=== PATIENT | male | born 1960 | race Caucasian/White ===

== ENCOUNTER 2018-08-24 23:10 | Inpatient (IN) | payer BC ==
[~2018-08-24] VITALS: Ht 185.4 cm; Wt 154.9 kg
[2018-08-25] VITALS (11 sets, daily range): BP systolic 130–188; BP diastolic 60–86
[2018-08-25 00:47] LABS: BILIRUBIN,URINE NEGATIVE (NEG); CLARITY,URINE CLEAR; COLOR,URINE YELLOW; NITRITE,URINE NEGATIVE (NEG); PH,URINE 6.5; PROTEIN,URINE >=300 mg/dL (NEG-TRACE)
[2018-08-25 00:52] LABS: SQUAMOUS EPITHELIAL CELL,UR FEW /LPF
[2018-08-25 00:53] LABS: AMORPHOUS SEDIMENT,UR PRESENT /HPF; BACTERIA,URINE 0 /HPF (0-FEW); RBC,URINE 20-40 /HPF (0-2); WBC,URINE 0 /HPF (0-4)
[2018-08-25 01:21] LABS: BASO # 0.1 x10^3/uL (0.0-0.2); BASO % 1 % (0-3); EOS # 0.1 x10^3/uL (0.0-0.7); EOS % 1 % (0-3); HEMOGLOBIN 14.2 g/dL (13.0-17.5); LYMPH # 1.1 x10^3/uL (1.0-4.8); LYMPH % 12 % (24-48); MEAN CORPUSCULAR HEMOGLOBIN 31 pg (25-35); MEAN CORPUSCULAR HGB CONC 35 g/dL (31-37); MEAN CORPUSCULAR VOLUME 90 fL (79-100); MONO % 11 % (0-9); NEUT # 7.2 x10^3uL (1.8-7.7); NEUT % 76 % (31-73); PLATELET COUNT 210 x10^3/uL (140-400); RED BLOOD COUNT 4.55 x10^6/uL (4.30-5.70); WHITE BLOOD COUNT 9.6 x10^3/uL (4.0-11.0)
[2018-08-25 01:24] LABS: CALCIUM 9.4 mg/dL (8.5-10.1); CREATININE 1.2 mg/dL (0.7-1.3); POTASSIUM 4.2 mmol/L (3.5-5.1)
--- NOTE | 2018-08-25 02:17 | PHYS DOC ---
Past Medical History Past Medical History: Diabetes-Type II, Hypertension Past Surgical History: Cholecystectomy Alcohol Use: Occasionally Drug Use: None Adult General Chief Complaint Chief Complaint: URINARY RETENTION HPI HPI Patient is a 58 year old with history of hypertension type 2 diabetes who presents with urinary frequency urgency and dysuria for the past 4 days. Patient also reports hematuria. States that he was seen by his PCP earlier today for the same and then developed back pain following a visit. No nausea or vomiting. No fever chills or sweats. History of previous urinary tract infection. Denies hi story of kidney stones. [] Review of Systems Review of Systems Review of symptoms as per history of present illness. All other review symptoms are negative. All other systems were reviewed and found to be within normal limits, except as documented in this note. Current Medications Current Medications Current Medications Medications (Trade) Dose Ordered Sig/Jacky Start Time Stop Time Status Last Admin Dose Admin Phenazopyridine HCl (Pyridium) 200 mg 1X ONCE 08/25/18 02:30 08/25/18 02:31 DC 08/25/18 02:30 200 MG Allergies Allergies Allergies Coded Allergies Type Severity Reaction Last Updated Verified simvastatin Allergy Unknown 08/24/18 Yes Physical Exam Physical Exam Constitutional: Well developed, well nourished, no acute distress, non-toxic appearance. [] HENT: Normocephalic, atraumatic, bilateral external ears normal, oropharynx moist, no oral exudates, nose normal. [] Eyes: PERRLA, EOMI, conjunctiva normal, no discharge. [] Neck: Normal range of motion, no tenderness, supple, no stridor. [] Cardiovascular:Heart rate regular rhythm, no murmur [] Lungs & Thorax: Bilateral breath sounds clear to auscultation [] Abdomen: Bowel sounds normal, soft, no tenderness. [] Skin: Warm, dry, no erythema, no rash. [] Back: No tenderness, no CVA tenderness. [] Extremities: No tenderness, no cyanosis, no clubbing, ROM intact, no edema. [] Neurologic: Alert and oriented X 3, normal motor function, normal sensory function, no focal deficits noted. [] Psychologic: Affect normal, judgement normal, mood normal. [] Current Patient Data Vital Signs Vital Signs Date Time Temp Pulse Resp B/P (MAP) Pulse Ox O2 Delivery O2 Flow Rate FiO2 08/24/18 23:51 98.1 84 16 187/98 (127) 94 Room Air 98.1 Lab Values Laboratory Tests Test 08/25/18 00:15 08/25/18 01:05 Urine Collection Type Unknown Urine Color Yellow Urine Clarity Clear Urine pH 6.5 Urine Specific [place] 1.025 Urine Protein >=300 mg/dL (NEG-TRACE) Urine Glucose (UA) Negative mg/dL (NEG) Urine Ketones (Stick) Negative mg/dL (NEG) Urine Blood Large (NEG) Urine Nitrite Negative (NEG) Urine Bilirubin Negative (NEG) Urine Urobilinogen Dipstick 1.0 mg/dL (0.2 mg/dL) Urine Leukocyte Esterase Negative (NEG) Urine RBC 20-40 /HPF (0-2) Urine WBC 0 /HPF (0-4) Urine Squamous Epithelial Cells Few /LPF Urine Amorphous Sediment Present /HPF Urine Bacteria 0 /HPF (0-FEW) Urine Mucus Mod /LPF White Blood Count 9.6 x10^3/uL (4.0-11.0) Red Blood Count 4.55 x10^6/uL (4.30-5.70) Hemoglobin 14.2 g/dL (13.0-17.5) Hematocrit 41.0 % (39.0-53.0) Mean Corpuscular Volume 90 fL (79-100) Mean Corpuscular Hemoglobin 31 pg (25-35) Mean Corpuscular Hemoglobin Concent 35 g/dL (31-37) Red Cell Distribution Width 13.0 % (11.5-14.5) Platelet Count 210 x10^3/uL (140-400) Neutrophils (%) (Auto) 76 % (31-73) H Lymphocytes (%) (Auto) 12 % (24-48) L Monocytes (%) (Auto) 11 % (0-9) H Eosinophils (%) (Auto) 1 % (0-3) Basophils (%) (Auto) 1 % (0-3) Neutrophils # (Auto) 7.2 x10^3uL (1.8-7.7) Lymphocytes # (Auto) 1.1 x10^3/uL (1.0-4.8) Monocytes # (Auto) 1.0 x10^3/uL (0.0-1.1) Eosinophils # (Auto) 0.1 x10^3/uL (0.0-0.7) Basophils # (Auto) 0.1 x10^3/uL (0.0-0.2) Sodium Level 138 mmol/L (136-145) Potassium Level 4.2 mmol/L (3.5-5.1) Chloride Level 101 mmol/L (98-107) Carbon Dioxide Level 25 mmol/L (21-32) Anion Gap 12 (6-14) Blood Urea Nitrogen 26 mg/dL (8-26) Creatinine 1.2 mg/dL (0.7-1.3) Estimated GFR (Cockcroft-Gault) 62.0 Glucose Level 141 mg/dL (70-99) H Calcium Level 9.4 mg/dL (8.5-10.1) Laboratory Tests 08/25/18 01:05 Laboratory Tests 08/25/18 01:05 EKG EKG [] Radiology/Procedures Radiology/Procedures [CT abdomen pelvis: 9 Millimeter left UVJ stone with hydroureter and nephrosis.] Course & Med Decision Making Course & Med Decision Making Pertinent Labs and Imaging studies reviewed. (See chart for details) Obstructing ureteral stone in diabetic male. No infection. ] Dragon Disclaimer Dragon Disclaimer This electronic medical record was generated, in whole or in part, using a voice recognition dictation system. Departure Departure Impression: Primary Impression: Ureteral calculus, left Additional Impression: Diabetes Disposition: ADMITTED INPATIENT Condition: GOOD Referrals: NO PCP (PCP) Problem Qualifiers ALICE DAVIS DO Aug 25, 2018 02:17
[2018-08-25] MEDS ORDERED: PHENAZOPYRIDINE 200 MG TABLET. PO ONE (02:30)
--- NOTE | 2018-08-25 03:50 | RAD ---
INDICATION: Flank pain and hematuria COMPARISON: None. TECHNIQUE: Axial CT images obtained through the abdomen and pelvis without contrast. Limited assessment of solid organ structures and vasculature secondary to lack of intravenous contrast.. One or more of the following individualized dose reduction techniques were utilized for this examination: 1. Automated exposure control; 2. Adjustment of the mA and/or kV according to patient size; 3. Use of iterative reconstruction technique. FINDINGS: Small hiatal hernia. Moderate calcific atherosclerosis. Fat-containing right greater than left inguinal hernia. Liver is mildly low attenuation. Nonspecific but can be seen with fatty infiltration. No peripancreatic fluid collection. Spleen unremarkable. Left-sided hydronephrosis with perinephric edema and hydroureter. Left ureterovesicular junction stone measuring up to 9 mm. The urinary bladder is decompressed with thickened wall and adjacent edema. Catheter within. Cystic lesion at the lower pole the left kidney measuring up to 63 mm. No right-sided hydronephrosis. Appendix does not appear grossly inflamed. Prostate calcifications. Degenerative changes the spine with multilevel central canal and neural foraminal stenosis. Degenerative changes of the hips. IMPRESSION: 1. Left-sided hydronephrosis with perinephric edema and perinephric fluid as well as hydroureter and left distal ureter stone. 2. The urinary bladder is decompressed but appears thick-walled with adjacent edema. Would correlate with symptoms in the region to ensure that there is not a additional pathologic cause such as cystitis or a bladder wall lesion. 3. Multilevel degenerative changes throughout the spine with central canal and neural foraminal stenosis. 4. Calcific atherosclerosis. 5. Cystic lesion left kidney. Cannot evaluate for complex component on noncontrast exam. Electronically signed by: Raghav Jacobs MD (08/25/2018 3:47 AM) [facility]
[2018-08-25] MEDS ORDERED: ONDANSETRON PF 4 MG/2 ML VIAL. IV PRN ×2 (04:15→11:15)
[2018-08-25] MEDS ORDERED: MORPHINE SULFATE 4 MG/ML VIAL. IV ONE (04:30)
[2018-08-25] MEDS ORDERED: KETOROLAC 30 MG/ML VIAL. IV ONE (04:30)
[2018-08-25] MEDS ORDERED: ONDANSETRON PF 4 MG/2 ML VIAL. IV ONE (04:30)
--- NOTE | 2018-08-25 05:30 | NUR ---
A 58 year old male admitted from ER to room 430 per wheelchair for diagnosis of urinary retention, hematuria,flank pain and a 9mm left kidney stone. Patient is alert and oriented X4. Patient states he is allergic to simvastatin and the flu vaccine. Patient denies pain at this time. Consult with Dr. Garber. Will continue to monitor.
[2018-08-25] MEDS: MORPHINE SULFATE 2 MG/ML VIAL. IV PRN ×2 (08:39→11:29)
[2018-08-25] MEDS: IV NORMAL SALINE 1000ML BAG 1,000 ML IV SCH ×3 (08:43→17:35)
--- NOTE | 2018-08-25 09:28 | PDOC2 ---
YANDYRUDY Bonny DERAS 08/25/18 0928: UROLOGY CONSULT Date of Consult Date of Consult DATE: 08/25/18 TIME: 09:20 Identification/Chief Complaint Chief Complaint 9 mm kidney stone Source Source: Caregiver, Chart review, Patient History of Present Illness Reason for Visit: This pleasant 58 year old male presented yesterday through the ER with extreme pressure/pain in his bilateral lower back. A CT scan was done and it was discovered that he had a 9 mm kidney stone in his left side along with hydronephrosis and hydroureter. Therefore Urology was consulted. This is the first time he has had a kidney stone to knowledge, but does have controlled type 2 diabetes and HTN. Presently his pain is 0/10 and he is not nauseas or vomiting either. He did have some mild dysuria off and on over the past week, along with hematuria he saw just once on Thursday. He is open to having a surgery today for his kidney stones if necessary. Social History Quit (Quit ) Current Problem List Problems: (1) Ureteral stone Current Medications Current Medications Current Medications Ketorolac Tromethamine (Toradol 30mg Vial) 30 mg 1X ONCE IV Last administered on 08/25/18at 04:30; Start 08/25/18 at 04:30; Stop 08/25/18 at 04:31; Status DC Morphine Sulfate (Morphine Sulfate) 2 mg PRN Q2HR PRN IV PAIN Last administered on 08/25/18at 08:39; Start 08/25/18 at 04:15; Stop 08/26/18 at 04:14 Morphine Sulfate (Morphine Sulfate) 4 mg 1X ONCE IV Last administered on 08/25/18at 04:30; Start 08/25/18 at 04:30; Stop 08/25/18 at 04:31; Status DC Ondansetron HCl (Zofran) 4 mg 1X ONCE IV Last administered on 08/25/18at 04:30; Start 08/25/18 at 04:30; Stop 08/25/18 at 04:31; Status DC Ondansetron HCl (Zofran) 4 mg PRN Q8HRS PRN IV NAUSEA/VOMITING; Start 08/25/18 at 04:15; Stop 08/26/18 at 04:14 Phenazopyridine HCl (Pyridium) 200 mg 1X ONCE PO Last administered on 08/25/18at 02:30; Start 08/25/18 at 02:30; Stop 08/25/18 at 02:31; Status DC Sodium Chloride 1,000 ml @ 150 mls/hr Q6H40M IV Last administered on 08/25/18at 08:43; Start 08/25/18 at 04:15; Stop 08/26/18 at 04:14 Allergies Allergies: Coded Allergies: Influenza Virus Vaccines (Verified Allergy, Intermediate, was in hospital for 2 weeks, 08/25/18) simvastatin (Verified Allergy, Intermediate, 08/25/18) ROS Review Of Systems: CONSTITUTIONAL: No fever or chills EYES: No recent changes SKIN: No rash or itching CARDIOVASCULAR: No chest pain, syncope, palpitations, or edema RESPIRATORY: No SOB or cough GASTROINTESTINAL: + abdominal pain right lower side, no N/V NEUROLOGICAL: No headaches or weakness ENDOCRINE: No cold or heat intolerance GENITOURINARY: + Dysuria/hematuria intermittently. MUSCULOSKELETAL: No back pain or joint pain LYMPHATICS: No enlarged lymph nodes PSYCHIATRIC: No anxiety or depression Physical Exam Physical Exam: General: Pleasant, no acute distress, well groomed Eyes: conjunctiva anicteric, eyes full range of motion ENT: moist oral mucosa, normal dentition Neck: Trachea midline, no masses Respiratory: unlabored breathing, not using accessory muscles, Back: No CVA pain on testing/physical exam. Abdomen: soft, obese, tender RLQ, non tender all other areas. Skin: no rashes or skin lesions on visualized skin Psych: normal mood, affect. Alert and oriented x 3. Vitals VITALS Vital Signs Date Time Temp Pulse Resp B/P (MAP) Pulse Ox O2 Delivery O2 Flow Rate FiO2 08/25/18 08:39 91 Room Air 08/25/18 07:00 98.0 67 18 145/63 (90) 98.0 Labs Labs Laboratory Tests Test 08/25/18 00:15 08/25/18 01:05 08/25/18 07:23 Urine Collection Type Unknown Urine Color Yellow Urine Clarity Clear Urine pH 6.5 Urine Specific [place] 1.025 Urine Protein >=300 mg/dL (NEG-TRACE) Urine Glucose (UA) Negative mg/dL (NEG) Urine Ketones (Stick) Negative mg/dL (NEG) Urine Blood Large (NEG) Urine Nitrite Negative (NEG) Urine Bilirubin Negative (NEG) Urine Urobilinogen Dipstick 1.0 mg/dL (0.2 mg/dL) Urine Leukocyte Esterase Negative (NEG) Urine RBC 20-40 /HPF (0-2) Urine WBC 0 /HPF (0-4) Urine Squamous Epithelial Cells Few /LPF Urine Amorphous Sediment Present /HPF Urine Bacteria 0 /HPF (0-FEW) Urine Mucus Mod /LPF White Blood Count 9.6 x10^3/uL (4.0-11.0) Red Blood Count 4.55 x10^6/uL (4.30-5.70) Hemoglobin 14.2 g/dL (13.0-17.5) Hematocrit 41.0 % (39.0-53.0) Mean Corpuscular Volume 90 fL (79-100) Mean Corpuscular Hemoglobin 31 pg (25-35) Mean Corpuscular Hemoglobin Concent 35 g/dL (31-37) Red Cell Distribution Width 13.0 % (11.5-14.5) Platelet Count 210 x10^3/uL (140-400) Neutrophils (%) (Auto) 76 % (31-73) Lymphocytes (%) (Auto) 12 % (24-48) Monocytes (%) (Auto) 11 % (0-9) Eosinophils (%) (Auto) 1 % (0-3) Basophils (%) (Auto) 1 % (0-3) Neutrophils # (Auto) 7.2 x10^3uL (1.8-7.7) Lymphocytes # (Auto) 1.1 x10^3/uL (1.0-4.8) Monocytes # (Auto) 1.0 x10^3/uL (0.0-1.1) Eosinophils # (Auto) 0.1 x10^3/uL (0.0-0.7) Basophils # (Auto) 0.1 x10^3/uL (0.0-0.2) Sodium Level 138 mmol/L (136-145) Potassium Level 4.2 mmol/L (3.5-5.1) Chloride Level 101 mmol/L (98-107) Carbon Dioxide Level 25 mmol/L (21-32) Anion Gap 12 (6-14) Blood Urea Nitrogen 26 mg/dL (8-26) Creatinine 1.2 mg/dL (0.7-1.3) Estimated GFR (Cockcroft-Gault) 62.0 Glucose Level 141 mg/dL (70-99) Calcium Level 9.4 mg/dL (8.5-10.1) Glucose (Fingerstick) 135 mg/dL (70-99) Laboratory Tests Test 08/25/18 00:15 08/25/18 01:05 08/25/18 07:23 Urine Collection Type Unknown Urine Color Yellow Urine Clarity Clear Urine pH 6.5 Urine Specific [place] 1.025 Urine Protein >=300 mg/dL (NEG-TRACE) Urine Glucose (UA) Negative mg/dL (NEG) Urine Ketones (Stick) Negative mg/dL (NEG) Urine Blood Large (NEG) Urine Nitrite Negative (NEG) Urine Bilirubin Negative (NEG) Urine Urobilinogen Dipstick 1.0 mg/dL (0.2 mg/dL) Urine Leukocyte Esterase Negative (NEG) Urine RBC 20-40 /HPF (0-2) Urine WBC 0 /HPF (0-4) Urine Squamous Epithelial Cells Few /LPF Urine Amorphous Sediment Present /HPF Urine Bacteria 0 /HPF (0-FEW) Urine Mucus Mod /LPF White Blood Count 9.6 x10^3/uL (4.0-11.0) Red Blood Count 4.55 x10^6/uL (4.30-5.70) Hemoglobin 14.2 g/dL (13.0-17.5) Hematocrit 41.0 % (39.0-53.0) Mean Corpuscular Volume 90 fL (79-100) Mean Corpuscular Hemoglobin 31 pg (25-35) Mean Corpuscular Hemoglobin Concent 35 g/dL (31-37) Red Cell Distribution Width 13.0 % (11.5-14.5) Platelet Count 210 x10^3/uL (140-400) Neutrophils (%) (Auto) 76 % (31-73) Lymphocytes (%) (Auto) 12 % (24-48) Monocytes (%) (Auto) 11 % (0-9) Eosinophils (%) (Auto) 1 % (0-3) Basophils (%) (Auto) 1 % (0-3) Neutrophils # (Auto) 7.2 x10^3uL (1.8-7.7) Lymphocytes # (Auto) 1.1 x10^3/uL (1.0-4.8) Monocytes # (Auto) 1.0 x10^3/uL (0.0-1.1) Eosinophils # (Auto) 0.1 x10^3/uL (0.0-0.7) Basophils # (Auto) 0.1 x10^3/uL (0.0-0.2) Sodium Level 138 mmol/L (136-145) Potassium Level 4.2 mmol/L (3.5-5.1) Chloride Level 101 mmol/L (98-107) Carbon Dioxide Level 25 mmol/L (21-32) Anion Gap 12 (6-14) Blood Urea Nitrogen 26 mg/dL (8-26) Creatinine 1.2 mg/dL (0.7-1.3) Estimated GFR (Cockcroft-Gault) 62.0 Glucose Level 141 mg/dL (70-99) Calcium Level 9.4 mg/dL (8.5-10.1) Glucose (Fingerstick) 135 mg/dL (70-99) Images Images IMPRESSION: CT ABD/PELVIS: 1. Left-sided hydronephrosis with perinephric edema and perinephric fluid as well as hydroureter and left distal ureter stone. 2. The urinary bladder is decompressed but appears thick-walled with adjacent edema. Would correlate with symptoms in the region to ensure that there is not a additional pathologic cause such as cystitis or a bladder wall lesion. 3. Multilevel degenerative changes throughout the spine with central canal and neural foraminal stenosis. 4. Calcific atherosclerosis. 5. Cystic lesion left kidney. Cannot evaluate for complex component on noncontrast exam. Assessment/Plan Assessment/Plan 9 MM ureteral stone causing moderate hydronephrosis and hydroureter: We will take patient to OR today at 4 pm for cysto with left URS and stent placement with Dr. Acosta of [facility]. Keep pt NPO until after procedure today Continue to strain urine Continue pain and nausea control. Will follow while in house. MOIRA ACOSTA MD 08/25/18 1254: UROLOGY CONSULT Assessment/Plan Assessment/Plan 9mm left uvj stone, pain control issues. Discussed urs with inherent risk of uti, gh, injury to urethra, bladder, ureter, kidney, stent problem, etc. npo, marked, consent after r/b disucssed LLP 6cm, will get jovani to document anechogenicity. RUDY KEBEDE APRN Aug 25, 2018 09:28 MOIRA ACOSTA MD Aug 25, 2018 12:54
--- NOTE | 2018-08-25 10:48 | NUR ---
SW following for discharge planning. Discussed with RN, pt is from home with , 9mm kidney stone. Awaiting plan to determine discharge needs. SW will continue to follow.
[2018-08-25] MEDS ORDERED: IV RINGERS,LACTATED 1000ML 1,000 ML IV SCH (11:00)
[2018-08-25] MEDS ORDERED: HYDROmorphone 2 MG/ML VIAL IV PRN (11:15)
[2018-08-25] MEDS ORDERED: fentaNYL PF VIAL 100 MCG/2 ML VIAL IV PRN (11:15)
[2018-08-25] MEDS ORDERED: PROCHLORPERAZINE 10 MG/2 ML VIAL. IV PRN (11:15)
[2018-08-25] MEDS ORDERED: MORPHINE SULFATE 2 MG/ML VIAL. IV PRN (11:15)
--- NOTE | 2018-08-25 11:17 | PDOC1 ---
History and Physical Date of Admission Date of Admission DATE: 08/25/18 TIME: 11:16 Identification/Chief Complaint Chief Complaint flank pain, hematuria, Source Source: Chart review, Patient History of Present Illness History of Present Illness Mr. Melendez, is a 58 year old admit with flank pain and with new urinary frequency and urgency w/dysuria. He has worsened over 3 days, and now also reports hematuria. pain is intermittently severe, OK with IV pain meds pain in flank just started < 24 hours ago No nausea or vomiting. No fever chills or sweats. History of previous urinary tract infection. no prior history of kidney stones. Past Medical History Cardiovascular: HTN GI: No pertinent hx Heme/Onc: No pertinent hx Renal/: No pertinent hx Endocrine: Diabetes Family History Family History: Alzheimer's Disease Social History Smoke: No ALCOHOL: rare Drugs: None Current Problem List Problem List Problems Medical Problems: (1) Diabetes Status: Acute (2) Diabetes Status: Acute (3) Ureteral calculus, left Status: Acute (4) Ureteral calculus, left Status: Acute Current Medications Current Medications Current Medications Phenazopyridine HCl (Pyridium) 200 mg 1X ONCE PO Last administered on 08/25/18at 02:30; Start 08/25/18 at 02:30; Stop 08/25/18 at 02:31; Status DC Morphine Sulfate (Morphine Sulfate) 4 mg 1X ONCE IV Last administered on 08/25/18at 04:30; Start 08/25/18 at 04:30; Stop 08/25/18 at 04:31; Status DC Ondansetron HCl (Zofran) 4 mg 1X ONCE IV Last administered on 08/25/18at 04:30; Start 08/25/18 at 04:30; Stop 08/25/18 at 04:31; Status DC Ketorolac Tromethamine (Toradol 30mg Vial) 30 mg 1X ONCE IV Last administered on 08/25/18at 04:30; Start 08/25/18 at 04:30; Stop 08/25/18 at 04:31; Status DC Ondansetron HCl (Zofran) 4 mg PRN Q8HRS PRN IV NAUSEA/VOMITING; Start 08/25/18 at 04:15; Stop 08/26/18 at 04:14 Morphine Sulfate (Morphine Sulfate) 2 mg PRN Q2HR PRN IV PAIN Last administered on 08/25/18at 08:39; Start 08/25/18 at 04:15; Stop 08/26/18 at 04:14 Sodium Chloride 1,000 ml @ 150 mls/hr Q6H40M IV Last administered on 08/25/18at 08:43; Start 08/25/18 at 04:15; Stop 08/26/18 at 04:14 Ciprofloxacin/ Dextrose 200 ml @ 200 mls/hr 1X ONCE IV ; Start 08/25/18 at 15:45; Stop 08/25/18 at 16:44 Ondansetron HCl (Zofran) 4 mg PRN Q6HRS PRN IV NAUSEA/VOMITING; Start 08/25/18 at 11:15; Stop 08/25/18 at 19:00 Fentanyl Citrate (Fentanyl 2ml Vial) 25 mcg PRN Q5MIN PRN IV MILD PAIN 1-3; Start 08/25/18 at 11:15; Stop 08/25/18 at 19:00 Fentanyl Citrate (Fentanyl 2ml Vial) 50 mcg PRN Q5MIN PRN IV MODERATE TO SEVERE PAIN; Start 08/25/18 at 11:15; Stop 08/25/18 at 19:00 Morphine Sulfate (Morphine Sulfate) 1 mg PRN Q10MIN PRN IV SEVERE PAIN 7-10; Start 08/25/18 at 11:15; Stop 08/25/18 at 19:00 Ringer's Solution 1,000 ml @ 30 mls/hr Q24H IV ; Start 08/25/18 at 11:00; Stop 08/25/18 at 19:00 Hydromorphone HCl (Dilaudid) 0.5 mg PRN Q10MIN PRN IV SEV PAIN, Second choice; Start 08/25/18 at 11:15; Stop 08/25/18 at 19:00 Prochlorperazine Edisylate (Compazine) 5 mg PACU PRN PRN IV NAUSEA, MRX1; Start 08/25/18 at 11:15; Stop 08/25/18 at 19:00 Allergies Allergies: Coded Allergies: Influenza Virus Vaccines (Verified Allergy, Intermediate, was in hospital for 2 weeks, 08/25/18) simvastatin (Verified Allergy, Intermediate, 08/25/18) ROS General: YES: Chills; No: Night Sweats, Fatigue, Malaise, Appetite, Other PSYCHOLOGICAL ROS: No: Anxiety, Behavioral Disorder, Concentration difficultie, Decreased libido, Depression, Disorientation, Hallucinations, Hostility, Irritablity, Memory difficulties, Mood Swings, Obsessive thoughts, Sleep disturbances, Other Eyes: No Blurry vision, No Decreased vision, No Double vision, No Dry eyes, No Excessive tearing, No Eye Pain, No Itchy Eyes, No Loss of vision, No Photophobia, No Scotomata, No Uses contacts, No Uses glasses, No Other HEENT: No: Heacaches, Visual Changes, Hearing change, Nasal congestion, Nasal discharge, Oral lesions, Sinus pain, Sore Throat, Epistaxis, Sneezing, Snoring, Tinnitus, Vertigo, Vocal changes, Other ENDOCRINE: No: Breast Changes, Galactorrhea, Hair Pattern Changes, Hot Flashes, Malaise/lethargy, Mood Swings, Palpitations, Polydipsia/polyuria, Skin Changes, Temperature Intolerance, Unexpected Weight Changes, Other Respiratory: No: Cough, Hemoptysis, Orthopnea, Pleuritic Pain, Shortness of breath, SOB with excertion, Sputum Changes, Stridor, Tachypnea, Wheezing, Other Gastrointestinal: No Nausea, No Vomiting, No Abdominal Pain, No Diarrhea, No Constipation, No Melena, No Hematochezia, No Other Genitourinary: YES Dysuria, YES Hematuria, YES Urgency, YES Pain, YES Flank Pain Musculoskeletal: No Gait Disturbance, No Joint Pain, No Joint Stiffness, No Joint Swelling, No Muscle Pain, No Muscular Weakness, No Pain In:, No Swelling In:, No Other Neurological: No Behavorial Changes, No Bowel/Bladder ControlChng, No Confusion, No Dizziness, No Gait Disturbance, No Headaches, No Impaired Coord/balance, No Memory Loss, No Numbness/Tingling, No Seizures, No Speech Problems, No Tremors, No Visual Changes, No Weakness, No Other Skin: No Dry Skin, No Eczema, No Hair Changes, No Lumps, No Mole Changes, No Mottling, No Nail Changes, No Pruritus, No Rash, No Skin Lesion Changes, No Other, No Acne Physical Exam General: Alert, Oriented X3, Cooperative, mild distress HEENT: Mucous membr. moist/pink Lungs: Clear to auscultation, Normal air movement Heart: S1S2 Abdomen: Normal bowel sounds, Soft (obese) Extremities: No cyanosis, Normal pulses Skin: No rashes, No significant lesion Neuro: Normal gait, Normal speech, Normal tone Psych/Mental Status: Mood NL Vitals Vitals Vital Signs Date Time Temp Pulse Resp B/P (MAP) Pulse Ox O2 Delivery O2 Flow Rate FiO2 08/25/18 09:15 91 Room Air 08/25/18 07:00 98.0 67 18 145/63 (90) 98.0 Labs Labs Laboratory Tests Test 08/25/18 00:15 08/25/18 01:05 08/25/18 07:23 Urine Collection Type Unknown Urine Color Yellow Urine Clarity Clear Urine pH 6.5 Urine Specific Shel[place] 1.025 Urine Protein >=300 mg/dL (NEG-TRACE) Urine Glucose (UA) Negative mg/dL (NEG) Urine Ketones (Stick) Negative mg/dL (NEG) Urine Blood Large (NEG) Urine Nitrite Negative (NEG) Urine Bilirubin Negative (NEG) Urine Urobilinogen Dipstick 1.0 mg/dL (0.2 mg/dL) Urine Leukocyte Esterase Negative (NEG) Urine RBC 20-40 /HPF (0-2) Urine WBC 0 /HPF (0-4) Urine Squamous Epithelial Cells Few /LPF Urine Amorphous Sediment Present /HPF Urine Bacteria 0 /HPF (0-FEW) Urine Mucus Mod /LPF White Blood Count 9.6 x10^3/uL (4.0-11.0) Red Blood Count 4.55 x10^6/uL (4.30-5.70) Hemoglobin 14.2 g/dL (13.0-17.5) Hematocrit 41.0 % (39.0-53.0) Mean Corpuscular Volume 90 fL (79-100) Mean Corpuscular Hemoglobin 31 pg (25-35) Mean Corpuscular Hemoglobin Concent 35 g/dL (31-37) Red Cell Distribution Width 13.0 % (11.5-14.5) Platelet Count 210 x10^3/uL (140-400) Neutrophils (%) (Auto) 76 % (31-73) Lymphocytes (%) (Auto) 12 % (24-48) Monocytes (%) (Auto) 11 % (0-9) Eosinophils (%) (Auto) 1 % (0-3) Basophils (%) (Auto) 1 % (0-3) Neutrophils # (Auto) 7.2 x10^3uL (1.8-7.7) Lymphocytes # (Auto) 1.1 x10^3/uL (1.0-4.8) Monocytes # (Auto) 1.0 x10^3/uL (0.0-1.1) Eosinophils # (Auto) 0.1 x10^3/uL (0.0-0.7) Basophils # (Auto) 0.1 x10^3/uL (0.0-0.2) Sodium Level 138 mmol/L (136-145) Potassium Level 4.2 mmol/L (3.5-5.1) Chloride Level 101 mmol/L (98-107) Carbon Dioxide Level 25 mmol/L (21-32) Anion Gap 12 (6-14) Blood Urea Nitrogen 26 mg/dL (8-26) Creatinine 1.2 mg/dL (0.7-1.3) Estimated GFR (Cockcroft-Gault) 62.0 Glucose Level 141 mg/dL (70-99) Calcium Level 9.4 mg/dL (8.5-10.1) Glucose (Fingerstick) 135 mg/dL (70-99) Laboratory Tests Test 08/25/18 00:15 08/25/18 01:05 08/25/18 07:23 Urine Collection Type Unknown Urine Color Yellow Urine Clarity Clear Urine pH 6.5 Urine Specific Shel[place] 1.025 Urine Protein >=300 mg/dL (NEG-TRACE) Urine Glucose (UA) Negative mg/dL (NEG) Urine Ketones (Stick) Negative mg/dL (NEG) Urine Blood Large (NEG) Urine Nitrite Negative (NEG) Urine Bilirubin Negative (NEG) Urine Urobilinogen Dipstick 1.0 mg/dL (0.2 mg/dL) Urine Leukocyte Esterase Negative (NEG) Urine RBC 20-40 /HPF (0-2) Urine WBC 0 /HPF (0-4) Urine Squamous Epithelial Cells Few /LPF Urine Amorphous Sediment Present /HPF Urine Bacteria 0 /HPF (0-FEW) Urine Mucus Mod /LPF White Blood Count 9.6 x10^3/uL (4.0-11.0) Red Blood Count 4.55 x10^6/uL (4.30-5.70) Hemoglobin 14.2 g/dL (13.0-17.5) Hematocrit 41.0 % (39.0-53.0) Mean Corpuscular Volume 90 fL (79-100) Mean Corpuscular Hemoglobin 31 pg (25-35) Mean Corpuscular Hemoglobin Concent 35 g/dL (31-37) Red Cell Distribution Width 13.0 % (11.5-14.5) Platelet Count 210 x10^3/uL (140-400) Neutrophils (%) (Auto) 76 % (31-73) Lymphocytes (%) (Auto) 12 % (24-48) Monocytes (%) (Auto) 11 % (0-9) Eosinophils (%) (Auto) 1 % (0-3) Basophils (%) (Auto) 1 % (0-3) Neutrophils # (Auto) 7.2 x10^3uL (1.8-7.7) Lymphocytes # (Auto) 1.1 x10^3/uL (1.0-4.8) Monocytes # (Auto) 1.0 x10^3/uL (0.0-1.1) Eosinophils # (Auto) 0.1 x10^3/uL (0.0-0.7) Basophils # (Auto) 0.1 x10^3/uL (0.0-0.2) Sodium Level 138 mmol/L (136-145) Potassium Level 4.2 mmol/L (3.5-5.1) Chloride Level 101 mmol/L (98-107) Carbon Dioxide Level 25 mmol/L (21-32) Anion Gap 12 (6-14) Blood Urea Nitrogen 26 mg/dL (8-26) Creatinine 1.2 mg/dL (0.7-1.3) Estimated GFR (Cockcroft-Gault) 62.0 Glucose Level 141 mg/dL (70-99) Calcium Level 9.4 mg/dL (8.5-10.1) Glucose (Fingerstick) 135 mg/dL (70-99) VTE Prophylaxis Ordered VTE Prophylaxis Devices: Yes VTE Pharmacological Prophylaxi: No Assessment/Plan Assessment/Plan flank pain 9mm obs stone morbid obesity, BMI 45 htn dm2 admit obs PEDRO LUIS WEBER MD Aug 25, 2018 11:17
--- NOTE | 2018-08-25 12:51 | RAD ---
EXAM: Abdomen one view. HISTORY: Nephroureterolithiasis. COMPARISON: CT 08/25/2018. FINDINGS: A frontal view of the abdomen is obtained. A left ureterovesical junction calculus better seen on CT appears to persist and measures 5 mm. No additional calculi are seen. There are no distended small bowel loops. There is gas distally. Cholecystectomy clips are noted. Left hip osteoarthritis is moderate. IMPRESSION: 1. 5 mm left ureterovesical junction calculus. Electronically signed by: Dale Mccracken MD (08/25/2018 12:48 PM) [facility]
[2018-08-25] MEDS ORDERED: IOHEXOL 300 MG/ML 50 ML VIAL. ONE (14:14)
[2018-08-25] MEDS ORDERED: LIDOCAINE 2% JELLY 6ML IN APPLICATOR. ONE (14:15)
[2018-08-25] MEDS ORDERED: fentaNYL PF VIAL 100 MCG/2 ML VIAL ONE ×2 (14:35→17:28)
[2018-08-25] MEDS ORDERED: PROPOFOL 20 ML IV ONE (14:35)
[2018-08-25] MEDS ORDERED: ONDANSETRON PF 4 MG/2 ML VIAL. ONE (14:35)
[2018-08-25] MEDS ORDERED: LIDOCAINE 2% PF 5 ML VIAL. ONE (14:35)
[2018-08-25] MEDS ORDERED: DEXAMETHASONE SOD PHOS 4 MG/ML VIAL ONE (14:35)
[2018-08-25] MEDS ORDERED: METHYLENE BLUE 1% 10 ML VIAL. ONE (15:11)
[2018-08-25] MEDS ORDERED: CIPROFLOXACIN 400MG PREMIX 200 ML IV ONE (15:45)
[2018-08-25] MEDS ORDERED: SEVOFLURANE 61 TO 120 MINUTES. IH ONE (16:10)
[2018-08-25] MEDS ORDERED: ePHEDrine PF IN SALINE 50 MG/10 ML SYRINGE. IV ONE (16:11)
--- NOTE | 2018-08-25 17:03 | PDOC4 ---
OPERATIVE NOTE Date: Date: Aug 25, 2018 Pre-Op Diagnosis: left uvj stone Post-Op Diagnosis: same Procedure Performed: cysto, left urs w laser/stent Surgeon: Anesthesia Type: ga Blood Loss: 5ml Specimans Obtained: stone Findings: impacted left uvj stone obstructing and bleeding median prostate lobe Complications: none evident MOIRA YOUNGBLOOD MD Aug 25, 2018 17:02
[2018-08-25] MEDS: fentaNYL PF VIAL 100 MCG/2 ML VIAL IV PRN ×2 (17:30→18:00)
[2018-08-25] MEDS ORDERED: DEXTROSE 50% 25 GM / 50ML DISP.SYRIN. IV PRN (20:30)
[2018-08-25] MEDS: HYDROcodone/APAP 5/325MG 1 TAB TABLET PO PRN (20:42)
[2018-08-25] MEDS ORDERED: LISINOPRIL 20 MG TABLET PO SCH (21:00)
--- NOTE | 2018-08-25 23:20 | OP ---
DATE OF SURGERY: PREOPERATIVE DIAGNOSIS: Left ureterovesical junction stone. POSTOPERATIVE DIAGNOSIS: Impacted left ureterovesical junction stone obstructing and bleeding median prostate lobe, tortuous and pendulous urethra most likely related to his body habitus. SURGEON: Uma Acosta MD PROCEDURE: Cystoscopy with left ureteroscopy, laser lithotripsy and stent placement. CONDITION: Stable. COMPLICATIONS: None. FINDINGS: As mentioned above. SPECIMENS: Stones. PROCEDURE IN DETAIL: The patient was taken back to the procedure room and placed under general anesthesia in the supine position per the protocol. He was prepped and draped in the usual sterile fashion in the dorsal lithotomy position. Timeout was performed. SCDs were attached. IV antibiotics were administered. A 21-Malay rigid cystoscope was advanced per urethra into the bladder. He had a pendulous and a tortuous urethra, but managed to get into the bladder neck. He had an obvious obstructing median lobe that made instrumentation very difficult. Inspection of the bladder visualized no foreign body, stone or tumors. The right hemitrigone was visualized in orthotopic and patent position. The left hemitrigone was covered with bullous edema. I had a hard time visualizing the ureteral orifices due to the inflammation. I obtained a wire with the help of the ureteral catheter and managed to find the opening and advanced a wire past the stone all the way into the kidney. Semirigid ureteroscope was obtained to get access into the orifice. This was very difficult due to the obstructing stone. I obtained inner cannula of 11-Malay ureteral access sheath and dilated gently the ureteral orifice. A semirigid ureteroscope with a lot of difficulties due to the obstructing median lobe managed to get into the distal ureter. Stone was impacted to the ureter. The most external portion of the ureter was broken in smaller pieces with the laser lithotripsy. The rest of it dropped in the lumen and was removed with a basket. The rest of the ureter was widely dilated; however, due to the small caliber of the intramural ureter and the stone being impacted, we decided to leave the stent behind. This was done under direct vision with a 6 x 28 cm stent. All fragments were irrigated and sent for analysis. A Uro-Jet was applied to the urethra. The patient was awakened and taken to the PACU in stable condition. DISPOSITION: Discharged home later today or in the morning. He will follow up with me in 2 weeks for stent removal. UMA ACOSTA MD DR: Jennifer JOB#: [id number] / [id number]
[2018-08-26] MEDS: IV NORMAL SALINE 1000ML BAG 1,000 ML IV SCH (00:15)
[2018-08-26] MEDS: HYDROcodone/APAP 5/325MG 1 TAB TABLET PO PRN ×2 (00:58→06:50)
[2018-08-26 03:00] VITALS: BP 116/62
[2018-08-26 06:49] LABS: BASO % 1 % (0-3); EOS % 0 % (0-3); HEMATOCRIT 39.9 % (39.0-53.0); HEMOGLOBIN 13.6 g/dL (13.0-17.5); LYMPH # 0.9 x10^3/uL (1.0-4.8); LYMPH % 11 % (24-48); MEAN CORPUSCULAR HEMOGLOBIN 31 pg (25-35); MEAN CORPUSCULAR HGB CONC 34 g/dL (31-37); MEAN CORPUSCULAR VOLUME 92 fL (79-100); MONO # 0.7 x10^3/uL (0.0-1.1); MONO % 9 % (0-9); NEUT # 6.7 x10^3uL (1.8-7.7); NEUT % 80 % (31-73); PLATELET COUNT 190 x10^3/uL (140-400); RED BLOOD COUNT 4.35 x10^6/uL (4.30-5.70); RED CELL DISTRIBUTION WIDTH 13.1 % (11.5-14.5); WHITE BLOOD COUNT 8.3 x10^3/uL (4.0-11.0)
[2018-08-26 07:06] LABS: CALCIUM 8.6 mg/dL (8.5-10.1); CREATININE 0.9 mg/dL (0.7-1.3); GFR 86.4
[2018-08-26 07:27] VITALS: BP 151/67
[2018-08-26] MEDS ORDERED: INSULIN LISPRO 300 UNITS/3 ML INSULN.PEN. SQ SCH (08:00)
--- NOTE | 2018-08-26 08:28 | RAD ---
EXAM: RENAL/RETROPERITONEAL ULTRASOUND. HISTORY: Renal mass. COMPARISON: 08/25/2018. FINDINGS: Ultrasound of the kidneys, bladder and retroperitoneum was performed. The right kidney measures 16.1 cm. Cortical thickness and echogenicity are preserved. There is no hydronephrosis. The collecting system does not appear duplicated. The left kidney measures 11.9 cm. This is an underestimate and it measures 17.[address], including the cyst at the lower pole. Cortical thickness and echogenicity are preserved. Previously noted hydronephrosis has resolved. A cyst at the lower pole measures 6.7 x 5.9 cm and appears simple and benign. Images of the bladder reveal mild diffuse wall thickening without focal lesions. The left ureteral jet is visualized. IMPRESSION: 1. Benign 6.7 cm simple cyst at the left renal lower pole. 2. Resolution of previously noted left hydronephrosis. 3. Bilateral renal enlargement. Correlate for causes of large kidneys such as diabetic nephropathy, acute nephritis, or HIV nephropathy. Electronically signed by: Dale Mccracken MD (08/26/2018 8:25 AM) [facility]
[2018-08-26] MEDS ORDERED: METF500T16 PO (09:20)
[2018-08-26] MEDS ORDERED: LISI-130 PO (09:20)
[2018-08-26] MEDS ORDERED: ACET325T9 PO (09:21)
--- NOTE | 2018-08-26 09:24 | PDOC3 ---
Discharge Summary Visit Information Date of Admission: Aug 25, 2018 Date of Discharge: Aug 26, 2018 Admitting Diagnosis: flank pain Final Diagnosis hematuria flank pain 9mm obs stone, with hydroureter and renal colic pain obesity, BMI 45 dm2 hypertension Problems Medical Problems: (1) Diabetes Status: Acute (2) Diabetes Status: Acute (3) Ureteral calculus, left Status: Acute (4) Ureteral calculus, left Status: Acute Brief Hospital Course Allergies Allergies Coded Allergies Type Severity Reaction Last Updated Verified Influenza Virus Vaccines Allergy Intermediate was in hospital for 2 weeks 08/25/18 Yes simvastatin Allergy Intermediate 08/25/18 Yes Vital Signs Vital Signs Date Time Temp Pulse Resp B/P (MAP) Pulse Ox O2 Delivery O2 Flow Rate FiO2 08/26/18 07:52 Room Air 08/26/18 07:27 97.8 66 16 151/67 (95) 96 97.8 08/25/18 23:00 2.0 Lab Results Laboratory Tests Test 08/25/18 00:15 08/25/18 01:05 08/25/18 07:23 08/25/18 15:19 Urine Collection Type Unknown Urine Color Yellow Urine Clarity Clear Urine pH 6.5 Urine Specific Rum[place] 1.025 Urine Protein >=300 mg/dL (NEG-TRACE) Urine Glucose (UA) Negative mg/dL (NEG) Urine Ketones (Stick) Negative mg/dL (NEG) Urine Blood Large (NEG) Urine Nitrite Negative (NEG) Urine Bilirubin Negative (NEG) Urine Urobilinogen Dipstick 1.0 mg/dL (0.2 mg/dL) Urine Leukocyte Esterase Negative (NEG) Urine RBC 20-40 /HPF (0-2) Urine WBC 0 /HPF (0-4) Urine Squamous Epithelial Cells Few /LPF Urine Amorphous Sediment Present /HPF Urine Bacteria 0 /HPF (0-FEW) Urine Mucus Mod /LPF White Blood Count 9.6 x10^3/uL (4.0-11.0) Red Blood Count 4.55 x10^6/uL (4.30-5.70) Hemoglobin 14.2 g/dL (13.0-17.5) Hematocrit 41.0 % (39.0-53.0) Mean Corpuscular Volume 90 fL (79-100) Mean Corpuscular Hemoglobin 31 pg (25-35) Mean Corpuscular Hemoglobin Concent 35 g/dL (31-37) Red Cell Distribution Width 13.0 % (11.5-14.5) Platelet Count 210 x10^3/uL (140-400) Neutrophils (%) (Auto) 76 % (31-73) Lymphocytes (%) (Auto) 12 % (24-48) Monocytes (%) (Auto) 11 % (0-9) Eosinophils (%) (Auto) 1 % (0-3) Basophils (%) (Auto) 1 % (0-3) Neutrophils # (Auto) 7.2 x10^3uL (1.8-7.7) Lymphocytes # (Auto) 1.1 x10^3/uL (1.0-4.8) Monocytes # (Auto) 1.0 x10^3/uL (0.0-1.1) Eosinophils # (Auto) 0.1 x10^3/uL (0.0-0.7) Basophils # (Auto) 0.1 x10^3/uL (0.0-0.2) Sodium Level 138 mmol/L (136-145) Potassium Level 4.2 mmol/L (3.5-5.1) Chloride Level 101 mmol/L (98-107) Carbon Dioxide Level 25 mmol/L (21-32) Anion Gap 12 (6-14) Blood Urea Nitrogen 26 mg/dL (8-26) Creatinine 1.2 mg/dL (0.7-1.3) Estimated GFR (Cockcroft-Gault) 62.0 Glucose Level 141 mg/dL (70-99) Calcium Level 9.4 mg/dL (8.5-10.1) Glucose (Fingerstick) 135 mg/dL (70-99) 129 mg/dL (70-99) Test 08/25/18 20:11 08/26/18 06:27 08/26/18 07:04 Glucose (Fingerstick) 231 mg/dL (70-99) 142 mg/dL (70-99) White Blood Count 8.3 x10^3/uL (4.0-11.0) Red Blood Count 4.35 x10^6/uL (4.30-5.70) Hemoglobin 13.6 g/dL (13.0-17.5) Hematocrit 39.9 % (39.0-53.0) Mean Corpuscular Volume 92 fL (79-100) Mean Corpuscular Hemoglobin 31 pg (25-35) Mean Corpuscular Hemoglobin Concent 34 g/dL (31-37) Red Cell Distribution Width 13.1 % (11.5-14.5) Platelet Count 190 x10^3/uL (140-400) Neutrophils (%) (Auto) 80 % (31-73) Lymphocytes (%) (Auto) 11 % (24-48) Monocytes (%) (Auto) 9 % (0-9) Eosinophils (%) (Auto) 0 % (0-3) Basophils (%) (Auto) 1 % (0-3) Neutrophils # (Auto) 6.7 x10^3uL (1.8-7.7) Lymphocytes # (Auto) 0.9 x10^3/uL (1.0-4.8) Monocytes # (Auto) 0.7 x10^3/uL (0.0-1.1) Eosinophils # (Auto) 0.0 x10^3/uL (0.0-0.7) Basophils # (Auto) 0.0 x10^3/uL (0.0-0.2) Sodium Level 143 mmol/L (136-145) Potassium Level 4.0 mmol/L (3.5-5.1) Chloride Level 108 mmol/L (98-107) Carbon Dioxide Level 26 mmol/L (21-32) Anion Gap 9 (6-14) Blood Urea Nitrogen 17 mg/dL (8-26) Creatinine 0.9 mg/dL (0.7-1.3) Estimated GFR (Cockcroft-Gault) 86.4 Glucose Level 146 mg/dL (70-99) Calcium Level 8.6 mg/dL (8.5-10.1) Laboratory Tests Test 08/25/18 15:19 08/25/18 20:11 08/26/18 06:27 08/26/18 07:04 Glucose (Fingerstick) 129 mg/dL (70-99) 231 mg/dL (70-99) 142 mg/dL (70-99) White Blood Count 8.3 x10^3/uL (4.0-11.0) Red Blood Count 4.35 x10^6/uL (4.30-5.70) Hemoglobin 13.6 g/dL (13.0-17.5) Hematocrit 39.9 % (39.0-53.0) Mean Corpuscular Volume 92 fL (79-100) Mean Corpuscular Hemoglobin 31 pg (25-35) Mean Corpuscular Hemoglobin Concent 34 g/dL (31-37) Red Cell Distribution Width 13.1 % (11.5-14.5) Platelet Count 190 x10^3/uL (140-400) Neutrophils (%) (Auto) 80 % (31-73) Lymphocytes (%) (Auto) 11 % (24-48) Monocytes (%) (Auto) 9 % (0-9) Eosinophils (%) (Auto) 0 % (0-3) Basophils (%) (Auto) 1 % (0-3) Neutrophils # (Auto) 6.7 x10^3uL (1.8-7.7) Lymphocytes # (Auto) 0.9 x10^3/uL (1.0-4.8) Monocytes # (Auto) 0.7 x10^3/uL (0.0-1.1) Eosinophils # (Auto) 0.0 x10^3/uL (0.0-0.7) Basophils # (Auto) 0.0 x10^3/uL (0.0-0.2) Sodium Level 143 mmol/L (136-145) Potassium Level 4.0 mmol/L (3.5-5.1) Chloride Level 108 mmol/L (98-107) Carbon Dioxide Level 26 mmol/L (21-32) Anion Gap 9 (6-14) Blood Urea Nitrogen 17 mg/dL (8-26) Creatinine 0.9 mg/dL (0.7-1.3) Estimated GFR (Cockcroft-Gault) 86.4 Glucose Level 146 mg/dL (70-99) Calcium Level 8.6 mg/dL (8.5-10.1) Brief Hospital Course Mr. Melendez is a 58 old male, admit with hematuria and flank pain, obstructive hydroureter, 9mm obstructive stone Cystoscopy with left ureteroscopy, laser lithotripsy and stent placement. Dr. Ruiz on 08/25, f/u his clinic 1 week Discharge Information Condition at Discharge: Improved Follow Up: Weeks Disposition/Orders: D/C to Home Scheduled Lisinopril (Lisinopril) 40 Mg Tablet, 40 MG PO QHS for htn, #30 Prescribed by: PEDRO LUIS WEBER on 08/26/18919 Metformin Hcl (Metformin Hcl) 500 Mg Tablet, 500 MG PO BIDWMEALS for ANTI- DIABETIC, #60 Ref 0 Prescribed by: PEDRO LUIS WEBER on 08/26/18919 Scheduled PRN Acetaminophen (Tylenol) 325 Mg Tablet, 2 TAB PO QID PRN for PAIN, #30 Prescribed by: PEDRO LUIS WEBER on 08/26/18920 Patient Instructions Patient Instructions face to face discussion PEDRO LUIS WEBER MD Aug 26, 2018 09:24
--- NOTE | 2018-08-26 11:06 | NUR ---
pt is discharged home with self care at 1050 via wheelchair via this RN. pt is in stable condition. pt has all belongings with him. pt received discharge instructions and stated he had no further questions for me.
--- NOTE | 2018-08-27 14:06 | PATHOLOGY ---
[facility] Accession Number: [id number] . 01 Material submitted: . ureter - LEFT URETERAL STONE. Modifiers: left . 02 Diagnosis: Calculi, left ureter, removal: - Calculi/ureterolithiasis (gross diagnosis only). - Specimen forwarded for stone analysis, results to be reported in an addendum when available. [facility]/08/27/2018 . 02 Electronically signed: . Dom Harley MD, Pathologist NPI- [id number] . 01 Gross description: . Received fresh, labeled "Min Melendez, left ureteral stone", is an irregular fragment of hemorrhagic calculus measuring 0.4 x 0.2 x 0.1 cm. Gross only. ([facility]; 08/26/2018) [facility] . 02 Pathologist provided ICD-10: N20.1 . 02 CPT . 769352 Specimen Comment: A courtesy copy of this report has been sent to Specimen Comment: [phone], , . Specimen Comment: Report sent to ,DR PRAKASH / DR DAVIS Performed at: 01 [facility] [address], [place] [id number] MD Ger Camacho MD Phone: [phone] Performed at: 02 [facility] [address], [place] [id number] MD Dom Harley MD Phone: [phone]
== END 2018-08-26 10:50 | disposition home or self-care (01) | DRG 660 ==
LOC: ER 23:10 → 4 NORTH 08-25 04:00
PROVIDERS: ADMIT Internal Medicine; ATTEND Internal Medicine
PROC: 0T778DZ Dilation of Left Ureter with Intraluminal Device, Via Natural or Artificial Opening Endoscopic (ICD-10-PCS; 2018-08-25)
PROC: 0TC78ZZ Extirpation of Matter from Left Ureter, Via Natural or Artificial Opening Endoscopic (ICD-10-PCS; principal; 2018-08-25 15:30)
DX: N13.2 Hydronephrosis with renal and ureteral calculous obstruction (principal); Z68.42 Body mass index [BMI] 45.0-49.9, adult; E11.9 Type 2 diabetes mellitus without complications; I10 Essential (primary) hypertension; E66.01 Morbid (severe) obesity due to excess calories; Z82.0 Family history of epilepsy and other diseases of the nervous system; Z87.440 Personal history of urinary (tract) infections; Z79.899 Other long term (current) drug therapy; Z90.49 Acquired absence of other specified parts of digestive tract; Z88.8 Allergy status to other drugs, medicaments and biological substances; Z88.7 Allergy status to serum and vaccine
CPT/HCPCS: 36415; 51702; 74018; 74176; 76000; 76770; 80048; 81001; 82365; 82962; 85025; 88300; 96374; 96375; A7015; C1769; C2617; J0171; J0744; J1100; J1815; J1885; J2001; J2270; J2405; J2704; J3010; J7030; J7120; Q9967; Q9968; 99285-25

== ENCOUNTER → 2018-10-13 | Outpatient (CLI) | payer BC ==
[~2018-10-13] MED LIST: ACET325T9 PO; LISI-130 PO; METF500T16 PO
--- NOTE | 2018-10-13 16:34 | KCIC ---
Examination: Ultrasound kidneys HISTORY: History of one month follow-up for calculus left ureter, stent in the left ureter COMPARISON: 08/26/2018. FINDINGS: The right kidney measures 15.5 x 6.8 x 5.6 cm. The left kidney measures 13.7 x 5.0 x 5.8 cm. A cystic structure identified in the left kidney measuring 6.4 x 5.6 x 5.8 cm (prior 5.9 x 5.7 x 6.7 cm), containing subtle septation. Urinary bladder is mildly distended. The aorta, IVC are not well-visualized. IMPRESSION: 1. Left renal cyst probably containing subtle septation similar to prior exam. 2. Enlarged appearing bilateral kidneys again identified. Electronically signed by: Kyle Brothers MD (10/13/2018 4:31 PM) [id number]
== END | disposition home or self-care (01) ==
LOC: KCIC US 10:48
PROVIDERS: ATTEND Urology
DX: N28.1 Cyst of kidney, acquired (principal); N32.89 Other specified disorders of bladder; N20.1 Calculus of ureter
CPT/HCPCS: 76770